=== PATIENT | male | born 1940 | race Caucasian/White ===

== ENCOUNTER → 2017-08-19 | Day surgery (SDC) | payer MEDICARE ==
[~2017-08-19] MED LIST: BUPIVACAINE HCL PF 0.75% 30 ML VIAL ONE; DILT30TA PO; ESTR0.5T PO; OMEP20TA93 PO; PROP150T PO; PROPOFOL 200 MG/20 ML AMP IV ONE; SIMV20TA PO; TRAM50TA PO; TRIAMCINOLONE ACETONIDE 40 MG/ML VIAL I-ARTICULR ONE; XARE20TA PO
--- NOTE | 2017-08-19 08:36 | M6 ---
cc: Stacy Munroe MD DATE: 08/19/2017 PROCEDURE PERFORMED: Fluoroscopically-guided injection bilateral lumbar facet joints (bilateral L3-L4, L4-L5, and L5-S1). History and physical was completed and signed. Consent was signed. Procedure site was marked. Medications were listed and reconciled. Pain score was recorded. Allergies were noted. Time out was taken. Fluoroscopy time was recorded where applicable. Sedation was administered or directed by Dr. Munroe. The patient was given oxygen. The patient was monitored by a registered nurse. Total procedure time was greater than 15 minutes. PROCEDURE DETAILS: IV was started. Blood pressure cuff, pulse oximeter and EKG were applied. The patient was placed in the prone position on a Genaro table, sedated with small amounts of propofol titrated to effect. Vital signs were monitored and remained stable throughout the procedure. The lumbar area was prepped with alcohol and 10% Betadine solution and draped with sterile drapes. Fluoroscopy was used in the Amor dog view to clearly visualize the bilateral lumbar facet joints at L3-L4, L4-L5 and L5-S1. Separate sterile 3-1/2 inch, 25-gauge spinal needles were advanced into these joints under fluoroscopic guidance. There was negative aspiration for blood or any other type of fluid, and the patient was given 1 mL of Marcaine 0.75%, which contained 10 mg of Kenalog at each location. Following the procedure, the patient was taken to the recovery room with stable vital signs, neurologically intact. We will follow up with the patient to determine if she has a significant reduction in her pain and a corresponding increase in her functional capabilities. MD IDALMIS Lui/MARISOL , 08:26 AM , 08:34 AM
== END | disposition home or self-care (01) ==
LOC: PHSDC 06:53
PROVIDERS: ATTEND Pain Medicine Interventional Pain Medicine
DX: M54.5 Low back pain (principal)
CPT/HCPCS: 64493; 64494; 64495; 99152; J3301